=== PATIENT | female | born 1955 | race Caucasian/White ===

== ENCOUNTER → 2018-06-04 | Outpatient (CLI) | payer BC | END | disposition home or self-care (01) | LOC: LABPAT 15:56 | PROVIDERS: ATTEND Orthopaedic Surgery | DX: Z01.812 Encounter for preprocedural laboratory examination (principal) | CPT/HCPCS: 87070 ==

== ENCOUNTER → 2019-09-26 | Outpatient (CLI) | payer BC ==
--- NOTE | 2019-09-29 07:58 | MM ---
Reason for exam: screening (asymptomatic). Last mammogram was performed 2 years and 11 months ago. History: Patient is postmenopausal and had first child at age 34. Family history of breast cancer in aunt. Took hormonal contraceptives for 6 years. Physical Findings: A clinical breast exam by your physician is recommended on an annual basis and results should be correlated with mammographic findings. MG Screening Mammo w CAD Bilateral CC and MLO view(s) were taken. Prior study comparison: October 17, 2016, bilateral MG screening mammo w CAD. July 20, 2014, bilateral MG screening mammo w CAD. There are scattered fibroglandular densities. No significant changes when compared with prior studies. ASSESSMENT: Benign, BI-RAD 2 RECOMMENDATION: Routine screening mammogram of both breasts in 1 year.
== END | disposition home or self-care (01) ==
LOC: RADMAMWWP 09:58
PROVIDERS: ATTEND Family Medicine
DX: Z12.31 Encounter for screening mammogram for malignant neoplasm of breast (principal); Z80.3 Family history of malignant neoplasm of breast
CPT/HCPCS: 77067

== ENCOUNTER → 2020-05-18 | Outpatient (CLI) | payer BC ==
--- NOTE | 2020-05-18 16:27 | XR ---
EXAMINATION TYPE: XR chest 2V DATE OF EXAM: 05/18/2020 COMPARISON: NONE HISTORY: Cough and shortness of breath TECHNIQUE: Frontal and lateral views of the chest are obtained. FINDINGS: There is no focal air space opacity, pleural effusion, or pneumothorax seen. The cardiac silhouette size is within normal limits. The osseous structures are intact, there is thoracic spond ylosis. There is a retrocardiac density present centrally. There is bronchial wall thickening. IMPRESSION: Question hiatal hernia. There may be partial intrathoracic stomach. Alternate imaging co uld be performed for confirmation. Correlate for bronchitis, reactive airways disease
== END | disposition home or self-care (01) ==
LOC: RAD 15:08
PROVIDERS: ATTEND Family Medicine
DX: R05 Cough (principal)
CPT/HCPCS: 71046

== ENCOUNTER → 2021-10-17 | Outpatient (CLI) | payer MEDICARE ==
[2021-10-17 15:42] LABS: HCT 44.9 % (34.0-46.0); HGB 14.6 gm/dL (11.4-16.0); MCH 29.6 pg (25.0-35.0); MCHC 32.5 g/dL (31.0-37.0); MCV 91.3 fL (80.0-100.0); Mean Platelet Volume 7.9; Platelet Count 227 k/uL (150-450); RBC 4.92 m/uL (3.80-5.40); RDW 13.6 % (11.5-15.5); WBC 7.1 k/uL (3.8-10.6)
[2021-10-17 15:53] LABS: Partial Thromboplastin Time 22.6 sec (22.0-30.0); Prothrombin Time 10.3 sec (9.0-12.0)
[2021-10-17 16:26] LABS: Appearance,Urine Clear (Clear); Bilirubin,Urine Negative (Negative); Blood,Urine Trace (Negative); Color,Urine Yellow; Glucose,Urine (UA) Negative (Negative); Hyaline Casts,Urine 3 /lpf (0-2); Ketones,Urine Negative (Negative); Leukocyte Esterase,Urine Small (Negative); Mucus,Urine Few /hpf; Nitrite,Urine Negative (Negative); Protein,Urine Trace (Negative); RBC,Urine 1 /hpf (0-5); Specific Gravity,Urine 1.033 (1.001-1.035); Squamous Epithelial Cell,Urine 2 /hpf (0-4); WBC,Urine 2 /hpf (0-5)
[2021-10-17 16:29] LABS: Potassium 4.2 mmol/L (3.5-5.1); Total Bilirubin 0.4 mg/dL (0.2-1.3); Total Protein 7.3 g/dL (6.3-8.2)
== END | disposition home or self-care (01) ==
LOC: LABPAT 14:17
PROVIDERS: ATTEND Orthopaedic Surgery Sports Medicine
DX: Z01.812 Encounter for preprocedural laboratory examination (principal); M17.12 Unilateral primary osteoarthritis, left knee
CPT/HCPCS: 36415; 80053; 81001; 85027; 85610; 85730; 87070

== ENCOUNTER 2021-11-02 06:09 | Day surgery (SDC) | payer MEDICARE ==
[2021-10-26 08:41] VITALS: BMI 41.1
[~2021-11-02 06:09] MED LIST: ACETAMINOPHEN TAB 500 MG TAB PO PRN; DEXAMETHASONE SOD PHOSPHATE 4 MG/ML 1 ML VIAL IV ONE; GABAPENTIN 300 MG CAP PO PRN; LACTATED RINGERS 1,000 ML IV SCH; LIDOCAINE 1% (10MG/ML) FOR IV START INTRADERMA PRN; MELOXICAM 7.5 MG TAB PO PRN; ONDANSETRON 4 MG/2 ML VIAL IVP PRN; TRANEXAMIC ACID 1,000 MG in SODIUM CHLORIDE 0.9% 100 ML IVPB PRN
[2021-11-02] MEDS ORDERED: ONDANSETRON 4 MG/2 ML VIAL IVP PRN ×2 (07:00→08:18)
[2021-11-02] MEDS ORDERED: fentaNYL (PF) 50 MCG/ML 2 ML AMP IV ONE (07:25)
[2021-11-02] MEDS ORDERED: MIDAZOLAM 2 MG/2 ML VIAL IV ONE (07:25)
[2021-11-02] MEDS ORDERED: SODIUM CHLORIDE 0.9% 100 ML BAG ONE (08:09)
[2021-11-02] MEDS ORDERED: diphenhydrAMINE 50 MG/ML 1 ML VIAL ONE (08:09)
[2021-11-02] MEDS ORDERED: KETAMINE 10 MG/ML 20 ML VIAL ONE (08:09)
[2021-11-02] MEDS ORDERED: MIDAZOLAM 2 MG/2 ML VIAL ONE (08:09)
[2021-11-02] MEDS ORDERED: TRANEXAMIC ACID 1,000 MG/10 ML VIAL ONE (08:09)
[2021-11-02] MEDS ORDERED: GLYCOPYRROLATE 0.2 MG/ML 2 ML VIAL ONE (08:09)
[2021-11-02] MEDS ORDERED: ROPIVACAINE 5 MG/ML 30 ML VIAL ONE (08:09)
[2021-11-02] MEDS ORDERED: SODIUM CHLORIDE 0.9% (PF) 10 ML VIAL ONE (08:09)
[2021-11-02] MEDS ORDERED: PHENYLEPHRINE-0.9% NACL SYG 1,000 MCG/10 ML SYRINGE ONE (08:09)
[2021-11-02] MEDS ORDERED: fentaNYL (PF) 50 MCG/ML 2 ML AMP ONE (08:09)
[2021-11-02] MEDS ORDERED: PROPOFOL 10 MG/ML 20 ML VIAL IV ONE (08:09)
[2021-11-02] MEDS ORDERED: NA PHOS,M-B/NA PHOS,DI-BA 133 ML ENEMA RECTAL PRN (08:18)
[2021-11-02] MEDS ORDERED: HYDROmorphone 0.2 MG/1 ML SYRINGE IVP PRN (08:18)
[2021-11-02] MEDS ORDERED: diazePAM 5 MG TAB PO PRN (08:18)
[2021-11-02] MEDS ORDERED: HYDROmorphone 1 MG/ML 1 ML SYRINGE IVP PRN (08:18)
[2021-11-02] MEDS ORDERED: TEMAZEPAM 15 MG CAP PO PRN (08:18)
[2021-11-02] MEDS ORDERED: bisacodyL 10 MG SUPP RECTAL PRN (08:18)
[2021-11-02] MEDS ORDERED: NALOXONE 0.4 MG/ML 1 ML VIAL IV PRN (08:18)
[2021-11-02] MEDS ORDERED: MAGNESIUM HYDROXIDE 2,400 MG/10 ML CUP PO PRN (08:18)
[2021-11-02] MEDS ORDERED: HYDROmorphone 0.5 MG/0.5 ML SYRINGE IVP PRN (08:18)
[2021-11-02] MEDS ORDERED: ACETAMINOPHEN TAB 325 MG TAB PO PRN (08:18)
[2021-11-02] MEDS ORDERED: traMADol 50 MG TAB PO PRN (08:18)
[2021-11-02] MEDS ORDERED: ceFAZolin 3,000 MG in SODIUM CHLORIDE 0.9% IRRIGATIO 3,000 ML IRRIGATION ONE (08:46)
--- NOTE | 2021-11-02 09:12 | P.ANPRN ---
Procedure Note - Anesthesia - Nerve Block Performed Left Adductor Canal Single Time Out Performed: Yes (725) Date of Procedure: 11/02/21 Procedure Start Time: : Procedure Stop Time: : Location of Patient: PreOp Indication: Acute Post-Operative Pain, Requested by Surgeon Specifically requested for management of pain by DrGladis: Azeem Dougherty Sedation Type: Sedate with meaningful contact maintained Preparation: Sterile Prep, Sterile Dressing Position: Supine Catheter Depth at Skin (cm): 8 Catheter: Indwelling Needle Types: Pajunk Needle Gauge: 21 Ultrasound used to visualize needle placement: Yes Ultrasound used to observe medication spread: Yes Injectate: 0.5% Ropivacaine (see comment for volume) (15cc + 5 cc nacl pf) Blood Aspirated: No Pain Paresthesia on Injection Noted: No Resistance on Injection: Normal Image Stored and Saved: Yes Events: Uneventful and Well Tolerated
--- NOTE | 2021-11-02 09:17 | P.ANPRN ---
Procedure Note - Anesthesia - Nerve Block Performed Left iPack Single Time Out Performed: Yes (725) Date of Procedure: 11/02/21 Procedure Start Time: 07:32 Procedure Stop Time: 07:36 Location of Patient: PreOp Indication: Acute Post-Operative Pain, Requested by Surgeon Specifically requested for management of pain by DrGladis: Azeem Dougherty Sedation Type: Sedate with meaningful contact maintained Preparation: Sterile Prep Position: Supine Catheter: None Needle Types: Pajunk Needle Gauge: 21 Ultrasound used to visualize needle placement: Yes Ultrasound used to observe medication spread: Yes Injectate: 0.5% Ropivacaine (see comment for volume) (15cc + 5 cc nacl pf) Blood Aspirated: No Pain Paresthesia on Injection Noted: No Resistance on Injection: Normal Image Stored and Saved: Yes Events: Uneventful and Well Tolerated
[2021-11-02] MEDS ORDERED: LACTATED RINGERS 1,000 ML IV ONE (09:40)
[2021-11-02] MEDS: HYDROmorphone 0.5 MG/0.5 ML SYRINGE IVP PRN ×4 (10:54→13:57)
[2021-11-02] MEDS ORDERED: ROPIVACAINE 0.2%-NS ON-Q PUMP 1,090 MG, EMPTY PAIN BALL 1 EACH MISCELLANE PRN (11:05)
--- NOTE | 2021-11-02 11:20 | XR ---
EXAMINATION TYPE: XR knee limited LT DATE OF EXAM: 11/02/2021 CLINICAL HISTORY: Left knee pain and arthritis status post total knee replacement. TECHNIQUE: Portable AP and crosstable lateral views of the left knee are obtained immediately postop eratively. COMPARISON: None FINDINGS: Metallic hardware from total left knee arthroplasty is seen and appears satisfactory in al ignment and position. There is evidence of recent surgery with diffuse subcutaneous gas and soft tis doug swelling noted. IMPRESSION: METALLIC HARDWARE FROM TOTAL LEFT KNEE ARTHROPLASTY IS SATISFACTORY IN ALIGNMENT.
[2021-11-02] MEDS: HYDROcodone/APAP 5-325MG 1 EACH TAB PO PRN (17:54)
[2021-11-02] MEDS: PANTOPRAZOLE 40 MG/10 ML VIAL IVP SCH (18:50)
--- NOTE | 2021-11-02 20:52 | OP ---
OPERATIVE REPORT DATE OF PROCEDURE: 11/02/2021. SURGEON: Azeem Dougherty M.D. SEGMENTAL PAVER INSTALLER: Blas Coburn PA-C PREOPERATIVE DIAGNOSIS: Left knee osteoarthrosis. POSTOPERATIVE DIAGNOSIS: Left knee osteoarthrosis. OPERATION: Left total knee arthroplasty. ANESTHESIA: Spinal with sedation. ESTIMATED BLOOD LOSS: 100 mL. TOURNIQUET: Tourniquet time was 66 minutes at 250 mmHg. COMPLICATIONS: None apparent. DRAINS: None. DISPOSITION: Post-Anesthesia Care Unit INDICATIONS: Eileen is a 66-year-old female with a longstanding history of left knee pain. History and physical examination are consistent with advanced left knee osteoarthrosis. She has been through significant operative management up to this point. Further treatment options were discussed and she has decided to go forward with left total knee arthroplasty. The risks of procedure were discussed with her in detail. These risks included but were not limited to risk of infection, nerve damage, bleeding, pain, and a small risk of deep vein thrombosis which could lead to fatal pulmonary embolism. There was also a risk of loosening of the implant which could require revision operation. The patient understands these risks. All of her questions with regard to the procedure were answered to her satisfaction. Appropriate informed consent was obtained. DESCRIPTION OF PROCEDURE: The patient was identified in the preoperative holding area. Surgical site was marked by both the patient and myself. She was given 2 grams of Ancef IV for prophylactic purposes. She was then transferred to the operative suite. She was placed supine on the operating room table. A spinal anesthetic was then administered and dosed per the anesthesia department without apparent complication. Examination under anesthesia was then performed. The patient was 2-3 degrees shy of full extension. She had 90 degrees of flexion. The medial collateral ligament, lateral ligament, and posterior cruciate ligaments were stable. A tourniquet was then placed high on the left upper thigh, well padded in preparation for surgery. The patient's left lower extremity was then prepped and draped in the usual sterile fashion. Standard surgical pause was undertaken to ensure that we were operating on the correct site and that appropriate preoperative antibiotics had been given. All staff in the room were in agreement and we proceeded. The outlines of the patella were marked with a surgical pen. A planned 12 cm vertical incision centered over the patella was marked with a surgical pen. The leg was then exsanguinated with an Esmarch dressing. The knee was then flexed and the tourniquet was inflated to 250 mmHg. Total tourniquet time for the procedure was 66 minutes. Incision was then made with a 10 blade scalpel. Dissection was carried down sharply to the overlying fascia. Great care was taken to minimize the skin flaps. The knee was then exposed using a standard medial parapatellar approach. A small cuff of quadriceps tendon was then left for suturing. She was in quite a bit of varus preoperatively. A standard medial release was then made. The superficial medial collateral ligament was dissected off of the bone around to the proximal aspect of the proximal tibia. The medial meniscus was then excised as well. The lateral meniscus was also released anteriorly. The leg was then externally rotated. The patella was everted. The knee was flexed. Retractors were then placed to protect the collateral ligaments. I then proceeded to remove the infrapatellar fat pad. This was excised sharply tangentially with the fibers of the patellar tendon. I then proceeded to remove the peripheral osteophytes. She had very extensive large peripheral osteophytes. This was done with a rongeur. I then proceeded with the distal femoral resection. She did have near-full extension. A planned 9 mm resection was then done. The femoral canal was then entered in the midline of the femur approximately 10 mm anterior to the origin of the posterior cruciate ligament. The jeremiah was then advanced down the center of the femur and placed intramedullary. Based on the preoperative radiographs, the angle between the anatomic and mechanical axis of the femur was approximately 4-5 degrees. The valgus angle of the distal femoral cutting guide was then set at 4 degrees for the left knee. The distal femoral cutting guide was then advanced over the intramedullary jeremiah. This was seated firmly against the femur. I then, as mentioned, planned to take 9 mm off the distal femur. The cutting block was then secured onto the femur with pins. The jig was then removed. The distal femoral cut was made through the slot of the block. The pins were then removed and the distal femoral cutting block was removed. The accuracy of the distal femoral cuts was checked with 2 flat bars. I then proceeded with femoral sizing. The posterior referencing sizing guide was held firmly against the resected distal surface of the femur. The posterior condyles were resting on the posterior plane of the guide. The sizing guide was then placed onto the anterior femur. The size was measured as a size 5. I then assessed for femoral rotation. The plan was for 3 degrees external rotation. Three degrees of external rotation was placed onto the jig. These holes were then marked. I then confirmed the rotation by 3 separate methods. This was done using epicondylar axis as well as [place] line and posterior referencing. It was deemed that the external rotation was proper. I then went forward with placing the femoral cutting block. This was placed over the previously placed pin holes. The Joss wing was then placed onto the anterior slots to ensure that we would not notch the anterior femur with the anterior femoral cut. I then proceeded with the anterior femoral cut. This was flush with the anterior cortex of the femur. The posterior cuts were then made followed by the anterior chamfer cut and then the posterior chamfer cut. The cutting block was then removed. Throughout the resection, the collateral ligaments were protected with retractors. I then placed a trial size 5 femur. It was slightly wide, but the narrow fit very nicely and it fit flush with the distal end of the femur. The drill holes were then made. I then proceeded with the tibial cut. I planned for a cruciate-retaining knee. The guide was placed and set for varus, valgus and for slope. The height was set for an approximate 2 mm resection from the medial tibial plateau, which was the lower side. I was happy with the alignment and the amount of resection. The cutting block was then pinned to the proximal tibia. The alignment jeremiah was removed. Proximal tibia was resected with a reciprocating saw. Again this was done with retractors protecting the collateral ligaments as well as the posterior cruciate ligament. I then proceeded to evaluate the flexion and extension gaps. A 10 mm block was then placed. The flexion and extension gaps were equal. I then proceeded with resection of the posterior osteophytes. She had very extensive posterior osteophytes. This was done using a curved osteotome. This resected the posterior osteophytes, and posterior capsule stripping was done off the posterior aspect of the femur at this time. The osteophytes were then removed. I then proceeded with resection of the patella. The thickness of patella was measured using the caliper. The thickness was 22 mm. The thickness of the anticipated patellar dome was taken into account. Resection was then performed and confirmed to be equal in 4 quadrants using a caliper. Approximately 14 mm of bone remained after resection. A 29 x 8 standard patellar trial was then placed. The holes were drilled. The trial was then placed. I then proceeded with sizing the tibial plate. A size C tibial plate fit very nicely. I then placed the trial femur, the tibial tray and the patellar button. A 10 mm trial tibial insert was also placed. The components fit very nicely. She had full extension and flexion. The extension and flexion gaps were equal and stable to both varus and valgus stress. The patella tracked appropriately. Tibial tray rotation was then marked with a Bovie. This was externally rotated properly. I then proceeded with tibial preparation. First we drilled the femoral holes and removed the femoral component. The tibial tray was then set for proper external rotation as well as mediolateral placement onto the tibia. It was then pinned into place. I then proceeded with punching the keel. I then decided to proceed with cementing of all of our components. The knee was thoroughly irrigated with sterile saline solution with antibiotic added via pulse lavage. The lateral geniculate artery was identified and cauterized. All blood was removed from the bone of the tibia, femur and patella with pulse lavage. I then proceeded with cementing. One pack of antibiotic bone cement was prepared on the back table by the surgical physician assistant. I then proceeded with cementing the tibia first. Cement was impacted into the keel as well as deeply seated into the bone. A second coat of cement was then placed. The tibia was then impacted into place. Excess cement was removed with [place]'s and Joker's. I then proceeded with cementing of the femoral component. The femoral component was also cemented using standard technique. Excess cement was removed. A 10 mm trial insert was then placed into the knee. It was brought into full extension with a constant axial load placed until the cement had hardened. The patellar component was then cemented. This was held firmly with a compressive device until the cement had dried. When the cement had dried, the knee was taken out of extension. All excess cement was removed from around the prosthesis. I then trialed the knee with a 10 mm insert. Flexion and extension gaps were appropriate. I then trialed with a 12 mm, then a 14 mm insert. Flexion and extension gaps felt much better. The knee was stable with a 14 mm insert. It came into full extension. I decided to go forward with a 14 mm medial- congruent, cross-linked, cruciate-retaining tibial insert. Polyethylene was then placed onto the tibial tray and locked into place. The knee was then reduced. The knee was again further irrigated with sterile saline solution with antibiotic added. The tourniquet was then deflated. Total tourniquet time for the procedure was 66 minutes at 250 mmHg. Final components were Lorena Persona size 5 narrow cruciate-retaining femoral component, a size C tibial tray, a 14 mm medial- congruent, cross-linked, cruciate-retaining polyethylene insert, and a 29 x 8 mm patella. I then proceeded with closure. Again the knee was thoroughly irrigated. The quadriceps tendon and the medial retinaculum were reapproximated with a #2 Ethibond suture. The extensor mechanism was then closed with a running #2 Quill suture. Subcutaneous tissues were closed with 2-0 Vicryl interrupted suture. The skin was closed with a running 3-0 Quill suture. Dermabond was then applied to the incision. All sponge and needle counts were deemed correct prior to closure. The patient tolerated the procedure without apparent complication. She was transferred to the recovery room in stable condition. MMODL / IJN: [id number] /
[2021-11-02] MEDS ORDERED: SENNOSIDES-DOCUSATE SODIUM 1 EACH TAB PO SCH (21:00)
[2021-11-02] MEDS: ASPIRIN 81 MG PO SCH (21:16)
[2021-11-02] MEDS: LACTATED RINGERS 1,000 ML IV SCH ×2 (21:17→22:53)
[2021-11-03] MEDS: HYDROcodone/APAP 5-325MG 1 EACH TAB PO PRN (01:49)
[2021-11-03] MEDS: LACTATED RINGERS 1,000 ML IV SCH (05:42)
--- NOTE | 2021-11-03 08:12 | P.PN ---
Progress Note - Text Progress Note Date: 11/03/21 (756) Anesthesiology POD 1 S/p TKA with adductor canal catheter. Uncomfortable this am, breakthrough meds available. No facial numbness, tiniitis, confusion. Doing well. Answered all questions. VAS 6/10.
[2021-11-03] MEDS: HYDROcodone/APAP 10-325MG 1 EACH TAB PO PRN ×2 (08:18→13:09)
[2021-11-03] MEDS: ASPIRIN 81 MG PO SCH (08:18)
[2021-11-03] MEDS: PANTOPRAZOLE 40 MG/10 ML VIAL IVP SCH (08:29)
[2021-11-03 08:41] LABS: African American GFR (CKD) 60.6 (60.0-200.0); Anion Gap 10.1 mmol/L (10.00-18.00); BUN/Creat Ratio 18.27 Ratio (12.00-20.00); Blood Urea Nitrogen 20.1 mg/dL (9.0-27.0); Calcium 8.7 mg/dL (8.7-10.3); Carbon Dioxide 22.9 mmol/L (20.0-27.5); Non-African American GFR(CKD) 52.3 (60.0-200.0); Potassium 3.9 mmol/L (3.5-5.5)
[2021-11-03 09:13] LABS: Basophils # (A) 0.01 X 10*3/uL (0.00-0.10); Basophils % (A) 0.1 %; Eosinophils # (A) 0 X 10*3/uL (0.04-0.35); Eosinophils % (A) 0 %; HGB 12.4 g/dL (12.0-15.0); Lymphocytes # (A) 1.86 X 10*3/uL (0.90-5.00); Lymphocytes % (A) 20.7 %; MCH 28.5 pg (27.0-32.0); MCHC 31.8 g/dL (32.0-37.0); MCV 89.7 fL (80.0-97.0); Mean Platelet Volume 10.9 fL (9.5-12.2); Monocytes # (A) 0.91 X 10*3/uL (0.20-1.00); Monocytes % (A) 10.1 %; Neutrophils # (A) 6.16 X 10*3/uL (1.80-7.70); Neutrophils % (A) 68.7 %; Platelet Count 212 X 10*3/uL (140-440); RBC 4.35 X 10*6/uL (4.10-5.20); RDW 13.5 % (11.5-14.5); WBC 8.98 X 10*3/uL (4.50-10.00)
[2021-11-03 09:20] VITALS: BP 134/79; PULSE 76; RESP 17; TEMP 97.9
--- NOTE | 2021-11-03 09:29 | P.DS ---
Providers Attending physician: Azeem Dougherty Consults: 11/02/21 08:18 Consult Physician Routine Consulting Provider: Ilia Kan Consult Reason/Comments: post op medical management Do you want consulting provider notified?: Yes Primary care physician: Ilia Kan - Discharge Diagnosis(es) (1) Osteoarthritis of left knee Patient was admitted to the OR on 11/02/21 to undergo a left total knee arthroplasty. She had failed conservative measures as an outpatient and desired to proceed with elective surgery after given informed consent. She underwent the above procedure which he tolerated well without complication. Postoperative hospital course has remained without complication. On day of discharge she is afebrile, vital signs stable, labs within acceptable ranges, tolerating by mouth meds and diet, voiding without difficulty, positive flatus, denies abdominal pain or calf pain, pain is controlled on oral pain medication and has no new complaints. Wound is benign, neurovascular status is intact, calf is soft and nontender, abdomen soft and nontender. Review of systems is negative for numbness, tingling, fever, chills, chest pain, shortness of breath, nausea, vomiting, dizziness, headaches, slurred speech or other. Current Visit: Yes Status: Acute Priority: Medium (2) Status post total left knee replacement Current Visit: Yes Status: Acute Priority: Medium Procedures: Left TKA Patient Condition at Discharge: Good Plan - Discharge Summary Discharge Rx Participant: Yes New Discharge Prescriptions: New Aspirin [Adult Low Dose Aspirin EC] 81 mg PO BID #60 tab Docusate [Colace] 100 mg PO BID #60 capsule HYDROcodone/APAP 7.5-325MG [[place] 7.5-325] 1 - 2 each PO Q6HR PRN #42 tab PRN Reason: Pain No Action Omeprazole 40 mg PO QAM Mysoline (Unknown Dose) 1 - 2 tab PO DAILY Discharge Medication List Mysoline (Unknown Dose) 1 - 2 tab PO DAILY 10/26/21 [History] Omeprazole 40 mg PO QAM 10/26/21 [History] Aspirin [Adult Low Dose Aspirin EC] 81 mg PO BID #60 tab 11/03/21 [Rx] Docusate [Colace] 100 mg PO BID #60 capsule 11/03/21 [Rx] HYDROcodone/APAP 7.5-325MG [[place] 7.5-325] 1 - 2 each PO Q6HR PRN #42 tab 11/03/21 [Rx] Follow up Appointment(s)/Referral(s): Azeem Dougherty MD [STAFF PHYSICIAN] - 10 Days Activity/Diet/Wound Care/Special Instructions: Weight bear as tolerated May shower after 3 days if no bleeding Keep wound clean and dry Take meds as directed F/U with Dr. Dougherty in office Discharge Disposition: HOME WITH HOME HEALTH SERVICES
[2021-11-03] MEDS ORDERED: MULTIVITAMINS, THERA 1 EACH TAB PO SCH (12:00)
--- NOTE | 2021-11-03 12:33 | P.CONS ---
History of Present Illness - Reason for Consult Consult date: 11/03/21 Medical management gastroesophageal reflux disease Requesting physician: Azeem Dougherty - Chief Complaint Status post left total knee arthroplasty secondary to left knee osteoarthro - History of Present Illness This is a pleasant 66-year-old female with past medical history chronic left knee osteoarthrosis/left knee pain with prior operative management, gastroesophageal reflux disease, obesity and multiple other medical issues admitted for elective left total knee arthroplasty secondary to advanced left knee osteoarthrosis. Tolerated procedure well. Pain controlled on current med regimen in addition to ice on affected extremity. Patient has been up during the night ambulating to the bathroom, tolerating exertion well. Has not yet worked with PT-pending. Denies lightheadedness, dizziness or focal deficits. Denies chest pain, palpitations or shortness of breath. Tolerating diet with no nausea vomiting or diarrhea. Denies abdominal pain. Passing flatus. Afebrile, normal WBC. Hematology, chemistry panel is unremarkable. Pina virus not detected. Review of Systems ROS Statement: Those systems with pertinent positive or pertinent negative responses have been documented in the HPI. ROS Other: All systems not noted in ROS Statement are negative. Past Medical History Past Medical History: GERD/Reflux Additional Past Medical History / Comment(s): Benign tremors. History of Any Multi-Drug Resistant Organisms: None Reported Past Surgical History: Cholecystectomy, Joint Replacement Additional Past Surgical History / Comment(s): RIGHT KNEE REPLACEMENT. Past Anesthesia/Blood Transfusion Reactions: No Reported Reaction Past Psychological History: No Psychological Hx Reported Smoking Status: Never smoker Past Alcohol Use History: Rare Past Drug Use History: None Reported - Past Family History Mother Family Medical History: No Reported History Medications and Allergies Home Medications Medication Instructions Recorded Confirmed Type Mysoline (Unknown Dose) 1 - 2 tab PO DAILY 10/26/21 11/02/21 History Omeprazole 40 mg PO QAM 10/26/21 11/02/21 History Aspirin [Adult Low Dose Aspirin EC] 81 mg PO BID #60 tab 11/03/21 Rx Docusate [Colace] 100 mg PO BID #60 capsule 11/03/21 Rx HYDROcodone/APAP 7.5-325MG [[place] 1 - 2 each PO Q6HR PRN #42 tab 11/03/21 Rx 7.5-325] Allergies Allergy/AdvReac Type Severity Reaction Status Date / Time codeine AdvReac Nausea & Verified 11/02/21 06:49 Vomiting Physical Exam Vitals: Vital Signs Temp Pulse Pulse Resp BP Pulse Ox 11/03/21 07:30 97.9 F 76 17 134/79 95 11/03/21 01:09 97.8 F 75 15 147/80 96 11/02/21 20:27 97.7 F 83 18 137/68 98 11/02/21 15:15 97.6 F 82 16 143/84 100 11/02/21 14:30 64 16 142/68 95 11/02/21 13:30 60 16 143/67 100 11/02/21 12:59 60 16 134/64 100 11/02/21 12:30 71 16 114/62 100 Intake and Output 11/02/21 11/03/21 11/03/21 22:59 06:59 14:59 Intake Total 236 Balance 236 Intake: Oral 236 Other: # Voids 1 1 Weight 106.5 kg PHYSICAL EXAM: VITAL SIGNS: As above GENERAL: Sitting up in bed, no acute distress HEENT: Conjunctivae normal. eyes normal. Oral mucosa moist NECK: No JVD. No thyroid enlargement. No LNs CARDIOVASCULAR: S1, S2 regular. No murmur RESPIRATION: Breath sounds diminished in the bases. No rhonchi or crackles. No bronchial breathing. ABDOMEN: Soft, nontender . No guarding. no masses palpable. No ascites, No hepatosplenomegaly.Bowel sounds heard. LEGS: Left lower extremity dressing clean dry and intact, with ice packs over site,mild edema, warm, positive DP pulse. PSYCHIATRY: Alert and oriented X3, mood and affect normal. NERVOUS SYSTEM: Cranial N 2-12 grossly normal. Moves all 4 limbs. Diffuse weakness No focal deficits. Strength and sensation grossly intact. Skin: Warm and dry, no rash Results CBC & Chem 7: 11/03/21 06:06 11/03/21 06:06 Labs: Abnormal Lab Results - Last 24 Hours (Table) 11/03/21 11/03/21 Range/Units 06:06 06:06 MCHC 31.8 L (32.0-37.0) g/dL Eosinophils # 0 L (0.04-0.35) X 10*3/uL Est GFR (CKD-EPI)NonAf 52.3 L (60.0-200.0) Assessment and Plan Assessment: Left knee osteoarthritis, status post total left knee arthroplasty Gastroesophageal reflux disease Morbid obesity, BMI 42.9 Plan: Continue on current medication regime ,monitoring and symptomatic treatment. Pain management. Aggressive pulmonary toileting with incentive spirometer reinforced. PT. Discharge planning in progress as per orthopedic surgery. Follow-up with PCP in one week. Thank you Dr. Dougherty for the consult. The impression and plan of care has been dictated as directed. : I performed a history and examination of this patient, discussed the same with the dictator. I agree with the dictator's note ,documented as a scribe. Any additional findings or plans will be noted.
== END 2021-11-03 13:22 | disposition home health service (06) ==
LOC: OR 06:09 → 4SSUR 15:12 → OR 11-03 13:22
PROVIDERS: ATTEND Orthopaedic Surgery Sports Medicine
DX: M17.12 Unilateral primary osteoarthritis, left knee (principal); M25.762 Osteophyte, left knee; R25.1 Tremor, unspecified; K21.9 Gastro-esophageal reflux disease without esophagitis; Z96.611 Presence of right artificial shoulder joint; Z20.822 Contact with and (suspected) exposure to COVID-19; Z83.3 Family history of diabetes mellitus; Z82.49 Family history of ischemic heart disease and other diseases of the circulatory system; N28.9 Disorder of kidney and ureter, unspecified; Z88.5 Allergy status to narcotic agent; Z79.899 Other long term (current) drug therapy
CPT/HCPCS: 97161; 64999; 64448; 76942; 80048; 85025; 88300; 87635; 73560; 27447; C1776; C1713; J2250; J1200; J1100; J0690 ×2; J2405; J3010; J2795 ×2; J2370; J2704; C9113; J1170

== ENCOUNTER → 2022-04-19 | Outpatient (CLI) | payer MEDICARE ==
--- NOTE | 2022-04-20 14:15 | MM ---
Reason for Exam: Screening (asymptomatic). Last mammogram was performed 2 year(s) and 6 month(s) ago. Patient History: Menarche at age 11. First Full-Term at age 34. Late child-bearing (after 30). Postmenopausal. Patient used Hormonal Contraceptives for 6 years. Maternal aunt had breast cancer, age 48. Maternal cousin had breast cancer, age 56. Risk Values: Marie 5 year model risk: 2.5%. NCI Lifetime model risk: 9.0%. Prior Study Comparison: 07/20/2014 Bilateral Screening Mammogram, [facility]. 10/17/2016 Bilateral Screening Mammogram, [facility]. 09/26/2019 Bilateral Screening Mammogram, [facility]. Tissue Density: There are scattered fibroglandular densities. Findings: Analyzed By CAD. No suspicious groups of microcalcifications, spiculated or lobular masses, architectural distortion or other secondary signs of malignancy are mammographically apparent. Overall Assessment: Benign, BI-RAD 2 Management: Screening Mammogram of both breasts in 1 year. A negative mammogram report should not preclude additional follow up of suspicious palpable abnormalities. Patient should continue monthly self breast exam. A clinical breast exam by your physician is recommended on an annual basis and results should be correlated with mammographic findings. Electronically signed and approved by: Savage Downing D.O. Radiologis
== END | disposition home or self-care (01) ==
LOC: RADMAMWWP 14:10
PROVIDERS: ATTEND Family Medicine
DX: Z12.31 Encounter for screening mammogram for malignant neoplasm of breast (principal); Z78.0 Asymptomatic menopausal state; Z80.3 Family history of malignant neoplasm of breast
CPT/HCPCS: 77063; 77067

== ENCOUNTER 2022-09-25 09:00 | Day surgery (SDC) | payer MEDICARE ==
[~2022-09-25 09:00] MED LIST changes: -ACETAMINOPHEN TAB 500 MG TAB PO PRN; -DEXAMETHASONE SOD PHOSPHATE 4 MG/ML 1 ML VIAL IV ONE; -GABAPENTIN 300 MG CAP PO PRN; -MELOXICAM 7.5 MG TAB PO PRN; -ONDANSETRON 4 MG/2 ML VIAL IVP PRN; -TRANEXAMIC ACID 1,000 MG in SODIUM CHLORIDE 0.9% 100 ML IVPB PRN
[2022-09-25 10:01] VITALS: TEMP 97.9
[2022-09-25] MEDS ORDERED: PROPOFOL 10 MG/ML 20 ML VIAL IV ONE (10:50)
--- NOTE | 2022-09-25 10:54 | P.GSHP ---
History of Present Illness H&P Date: 09/25/22 Chief Complaint: Colon cancer screening 67-year-old female here today for colonoscopy. Last colonoscopy 8 years ago had adenomatous polyps. Patient with family history of colon cancer in her father. No bowel complaints. Past Medical History Past Medical History: GERD/Reflux Additional Past Medical History / Comment(s): hiatal hernia, History of Any Multi-Drug Resistant Organisms: None Reported Past Surgical History: Cholecystectomy, Joint Replacement Additional Past Surgical History / Comment(s): christopher knee replacements, Past Anesthesia/Blood Transfusion Reactions: No Reported Reaction Smoking Status: Never smoker Medications and Allergies Home Medications Medication Instructions Recorded Confirmed Type Mysoline (Unknown Dose) 1 - 2 tab PO DAILY 10/26/21 09/20/22 History Omeprazole 40 mg PO QAM 10/26/21 09/20/22 History Allergies Allergy/AdvReac Type Severity Reaction Status Date / Time codeine AdvReac Nausea & Verified 09/25/22 09:55 Vomiting Surgical - Exam Vital Signs Temp Pulse Resp BP Pulse Ox 97.9 F 88 18 166/92 97 09/25/22 10:00 09/25/22 10:00 09/25/22 10:00 09/25/22 10:00 09/25/22 10:00 Physical exam: General: Well-developed, well-nourished HEENT: Normocephalic, sclerae nonicteric Abdomen: Nontender, nondistended Extremities: No edema Neuro: Alert and oriented Assessment and Plan (1) Colon cancer screening Narrative/Plan: Will proceed with colonoscopy at this time. Current Visit: Yes Status: Acute Code(s): Z12.11 - ENCOUNTER FOR SCREENING FOR MALIGNANT NEOPLASM OF COLON SNOMED Code(s): 752979687
--- NOTE | 2022-09-25 11:13 | P.PCN ---
Date of Procedure: 09/25/22 Procedure(s) Performed: PREOPERATIVE DIAGNOSIS: Colon cancer screening, family history in father, history of adenomatous polyps POSTOPERATIVE DIAGNOSIS: Sigmoid colon polyp 2, diverticulosis PROCEDURE: Colonoscopy with snare polypectomy ANESTHESIA: MAC SURGEON: Bucky Fortune M.D. SPECIMENS: Polyps ENDOSCOPIC PROCEDURE: The patient was placed on the endoscopy table in the left decubitus position. The Olympus colonoscope was inserted into the anus and passed under direct visualization to the base of the cecum. The appendiceal orifice was visualized. From that point the scope was slowly withdrawn inspecting all surfaces carefully. There were no neoplastic inflammatory or polypoid lesions throughout the cecum, ascending, transverse, and descending colon. In the sigmoid there were 2 small polyps removed oozing the snare cautery technique. The remainder of the sigmoid and rectum is normal. There was mild left-sided diverticulosis found. Digital rectal examination was normal. The patient was taken to the recovery room in stable condition per anesthesia guidelines. RECOMMENDATIONS: Await biopsy results. Repeat colonoscopy 5 years
[2022-09-25 11:21] VITALS: RESP 16
[2022-09-25 11:35] VITALS: BP 143/70; PULSE 68
== END 2022-09-25 12:10 | disposition home or self-care (01) ==
LOC: ORWHC2ENDO 09:00
PROVIDERS: ATTEND Surgery
DX: Z12.11 Encounter for screening for malignant neoplasm of colon (principal); D12.5 Benign neoplasm of sigmoid colon; K21.9 Gastro-esophageal reflux disease without esophagitis; K44.9 Diaphragmatic hernia without obstruction or gangrene; Z90.49 Acquired absence of other specified parts of digestive tract; Z98.890 Other specified postprocedural states; Z79.899 Other long term (current) drug therapy; Z79.1 Long term (current) use of non-steroidal anti-inflammatories (NSAID); Z88.5 Allergy status to narcotic agent; Z86.010 Personal history of colon polyps; Z80.0 Family history of malignant neoplasm of digestive organs
CPT/HCPCS: 88305; 45385; J2704

== ENCOUNTER 2023-11-29 09:48 | Day surgery (SDC) | payer MEDICARE ==
[2023-11-26 16:55] VITALS: BMI 42.0
[2023-11-29] MEDS: LACTATED RINGERS 1,000 ML IV SCH (10:43)
[2023-11-29 11:04] VITALS: RESP 16; TEMP 97.2
[2023-11-29] MEDS ORDERED: PROPOFOL 10 MG/ML 20 ML VIAL IV ONE (11:22)
[2023-11-29] MEDS ORDERED: LIDOCAINE 1% INJ 10MG/ML (20 ML MDV) ONE (11:22)
--- NOTE | 2023-11-29 11:39 | P.PCN ---
Date of Procedure: 11/29/23 Procedure(s) Performed: BRIEF HISTORY: Patient is a 68-year-old, pleasant, white female scheduled for an upper endoscopy as a part of evaluation of intermittent dysphagia to solids for the last 1 year duration. She does have long-standing history of GERD and is on omeprazole 20 mg daily.. PROCEDURE PERFORMED: Esophagogastroduodenoscopy with biopsy and Endo Clip placement. PREOPERATIVE DIAGNOSIS: Long-standing history of GERD and intermittent dysphagia to solids. IV sedation per anesthesia. PROCEDURE: After informed consent was obtained, the patient was brought into the endoscopy unit. IV sedation was administered by Anesthesia under continuous monitoring. Initially the Olympus GIF-140 video endoscope was inserted into the mouth. Esophagus intubated without any difficulty. It was gradually advanced into the stomach and duodenum and carefully examined. The bulb and the second part of the duodenum appeared normal. The scope at this time was withdrawn to the stomach, adequately insufflated with air, and upon careful examination, mucosa of the antrum, and mild gastritis and biopsies were done from this area. Mucosa of body, cardia and the fundus appeared normal. There was a 7 mm polyp in the distal body the stomach which was biopsied and following the biopsy there was active bleeding identified. Endo Clip was placed and adequate hemostasis was achieved. Moderate size hiatal hernia noted. The scope was then withdrawn into the esophagus. The GE junction was located at 34 cm from the incisors. The esophagus appeared normal. There were no erosions or ulcerations seen and no evidence of esophageal stricture and the patient tolerated the procedure well. IMPRESSION: 1. 7 mm isolated gastric polyps in the distal gastric body the stomach status post biopsy followed by active oozing, status post Endo Clip placement. 2. Moderate size hiatal hernia no evidence of esophagitis or esophageal stricture 3 Mild antral gastritis RECOMMENDATIONS: The findings of this examination were discussed with the patient as well as her family. She was advised to follow with the biopsy results. Continue with omeprazole 20 mg daily and follow antireflux measures..
[2023-11-29 12:06] VITALS: BP 134/73; PULSE 55
== END 2023-11-29 12:15 | disposition home or self-care (01) ==
LOC: ORWHC2ENDO 09:48
PROVIDERS: ATTEND Internal Medicine Gastroenterology
DX: K29.50 Unspecified chronic gastritis without bleeding (principal); K21.9 Gastro-esophageal reflux disease without esophagitis; K31.7 Polyp of stomach and duodenum; K44.9 Diaphragmatic hernia without obstruction or gangrene; I10 Essential (primary) hypertension; Z98.890 Other specified postprocedural states; Z79.899 Other long term (current) drug therapy
CPT/HCPCS: 88305; 43239; 43255; J2001; J2704